=== PATIENT | female | born 1960 | race Caucasian/White ===

== ENCOUNTER 2017-02-04 14:01 | Emergency (ER) | payer OTHER ==
[~2017-02-04] VITALS: Ht 165.1 cm; Wt 79.4 kg
[~2017-02-04 14:01] MED LIST: BUDE1AER2 IH; CANNABIS; MORP30TA10 PO
[2017-02-04 14:47] VITALS: BP 149/81
--- NOTE | 2017-02-04 14:53 | NUR ---
PT AMBULATED BACK TO LOBBY, AWAITING AVAILABLE ROOM FOR MSE
--- NOTE | 2017-02-04 15:37 | NUR ---
Patient to bed 11.
--- NOTE | 2017-02-04 15:40 | NUR ---
56F BIB SELF WITH C/O LEFT FOOT PAIN X 1 HOUR TELEPHONE AD TAKER; PT DENIES ANY RECENT FALL OR INJURY DENIES N/V/D; SKIN IS PINK/WARM/DRY; AAOX4 WITH EVEN AND STEADY GAIT; LUNGS CLEAR BL; HR EVEN AND REGULAR; PT DENIES ANY FEVER, CP, SOB, OR COUGH AT THIS TIME; PATIENT STATES PAIN OF 7/10 AT THIS TIME; VSS; PATIENT POSITIONED FOR COMFORT; HOB ELEVATED; BEDRAILS UP X2; BED DOWN. ER MD MADE AWARE OF PT STATUS.
--- NOTE | 2017-02-04 16:27 | NUR ---
PT STATEDPAIN RELIVED AT THIS TIME NO PRESSURE ON HER FOOT.
[2017-02-04 16:38] VITALS: BP 135/80
--- NOTE | 2017-02-04 16:39 | NUR ---
Patient discharged with v/s stable. Written and verbal after care instructions given and explained. Patient verbalized understanding. Wheel Chair Assisted with to car. All questions addressed prior to discharge. Advised to follow up with PMD.
== END 2017-02-04 16:39 | disposition home or self-care (01) ==
LOC: MED 14:01
DX: S92.352A Displaced fracture of fifth metatarsal bone, left foot, initial encounter for closed fracture (principal); J44.9 Chronic obstructive pulmonary disease, unspecified; K21.9 Gastro-esophageal reflux disease without esophagitis; Z79.899 Other long term (current) drug therapy; Z85.3 Personal history of malignant neoplasm of breast; Z91.018 Allergy to other foods; X58.XXXA Exposure to other specified factors, initial encounter; Y93.89 Activity, other specified; Y92.89 Other specified places as the place of occurrence of the external cause; Y99.8 Other external cause status
CPT/HCPCS: 29515; 36415; 73630; 84550; 99285; Q0092